=== PATIENT | male | born 1985 | race Caucasian/White ===

== ENCOUNTER 2016-06-13 16:59 | Emergency (ER) | payer MEDICAID ==
[2016-06-13] MEDS ORDERED: ACETAMINOPHEN 325 MG TABLET PO STA (17:38)
[2016-06-13] MEDS ORDERED: IBUPROFEN 600 MG TABLET PO STA (17:38)
[2016-06-13] MEDS ORDERED: SULFAMETH/TRIMETH DS 800/160 MG TABLET PO STA (17:38)
[2016-06-13] MEDS ORDERED: IBUPROFEN 600 MG TABLET PO ONE (17:48)
[2016-06-13] MEDS ORDERED: SULFAMETH/TRIMETH DS 800/160 MG TABLET PO ONE (17:48)
[2016-06-13] MEDS ORDERED: ACETAMINOPHEN 325 MG TABLET PO ONE (17:48)
== END 2016-06-13 18:11 | disposition home or self-care (01) ==
DX: N45.1 Epididymitis (principal); N50.812 Left testicular pain; N50.811 Right testicular pain
CPT/HCPCS: 81003; 99283; A9270

== ENCOUNTER 2016-06-21 20:40 | Emergency (ER) | payer MEDICAID ==
[2016-06-21] MEDS ORDERED: LORazepam 0.5 MG TABLET PO STA (22:08)
[2016-06-21] MEDS ORDERED: LORazepam 0.5 MG TABLET ONE (22:09)
== END 2016-06-22 02:19 | disposition home or self-care (01) ==
DX: F45.8 Other somatoform disorders (principal); F41.9 Anxiety disorder, unspecified
CPT/HCPCS: 36415; 70450; 80053; 80306; 81003; 83690; 85025; 99283; 99284; A9270

== ENCOUNTER 2017-09-09 20:41 | Emergency (ER) | payer OTHER, MEDICAID ==
[2017-09-09 20:47] VITALS: BP 124/75
--- NOTE | 2017-09-09 21:48 | XRAY Report ---
Procedure Date: 09/09/2017 Accession Number: [id number] / [id number] Procedure: XR - Wrist 4 View RT CPT Code: FULL RESULT: EXAM: RIGHT WRIST RADIOGRAPHY EXAM DATE: 09/09/2017 09:12 PM. CLINICAL HISTORY: Pain. COMPARISON: None. TECHNIQUE: 3 views. FINDINGS: Bones: Normal. No fractures or bone lesions. Joints: Normal. No subluxations. Soft Tissues: Normal. No soft tissue swelling. IMPRESSION: Normal wrist radiography. [facility]
[2017-09-09] MEDS ORDERED: IBUPROFEN 800 MG TABLET PO STA (22:03)
[2017-09-09] MEDS ORDERED: DEXAMETHASONE 10 MG/ML VIAL PO STA (22:03)
--- NOTE | 2017-09-09 22:07 | ED Physician Documentation ---
History of Present Illness - Stated complaint Stated Complaint: R ARM PX - Chief complaint Chief Complaint: Ext Problem - History obtained from History obtained from: Patient - History of Present Illness Timing: Yesterday Pain level max: 8 Pain level now: 5 Improved by: rest Worsened by: movement - Additonal information Additional information: Patient is a 32-year-old male who presents to the emergency department with right wrist pain since yesterday. States that he first noticed it after opening boxes at work. Has not taken anything for the pain Review of Systems Constitutional: denies: Fever Neurologic: denies: Focal weakness, Numbness PD PAST MEDICAL HISTORY - Past Medical History Past Medical History: Yes Cardiovascular: Hypertension Respiratory: None Endocrine/Autoimmune: None : Other Psych: Anxiety, Panic attacks - Past Surgical History Past Surgical History: No - Present Medications Home Medications: Ambulatory Orders Medication Instructions Recorded Confirmed Gabapentin 2 tab PO BID 09/09/17 09/09/17 Ibuprofen [Motrin] 800 mg PO Q8H PRN #30 tablet 09/09/17 Lisinopril [Qbrelis] 1 tab PO DAILY 09/09/17 09/09/17 - Allergies Allergies/Adverse Reactions: Allergies Allergy/AdvReac Type Severity Reaction Status Date / Time No Known Drug Allergies Allergy Verified 09/09/17 20:46 - Social History Does the pt smoke?: No Smoking Status: Never smoker Does the pt drink ETOH?: No Does the pt have substance abuse?: Yes Substance Use and Type: Marijuana - Immunizations Immunizations are current?: Yes - POLST Patient has POLST: No PD ED PE NORMAL - Vitals Vital signs reviewed: Yes - General General: Alert and oriented X 3, No acute distress - HEENT HEENT: Moist mucous membranes - Derm Derm: Warm and dry - Extremities Extremities: Other (R wrist - no snuffbox tenderness. NVI. pain with ROM of the wrist. no deformity. mild diffuse TTP over the wrist.) - Neuro Neuro: Alert and oriented X 3 - Psych Psych: Normal mood, Normal affect Results - Vitals Vitals: Oxygen O2 Source Room air - Rads (name of study) R wrist xray Radiology: Prelim report reviewed, EMP read contemporaneously, See rad report ( normal) PD MEDICAL DECISION MAKING - ED course Complexity details: reviewed results, re-evaluated patient, considered differential, d/w patient ED course: Patient is a 32-year-old right-handed male with an apparent wrist strain. Placed in a thumb spica for comfort as he did have discomfort moving his thumb as well. No evidence of infection in the joint spaces. Normal x-ray. We will continue supportive care and follow-up with his doctor. Patient counseled regarding signs and symptoms for which I believe and urgent re-evaluation would be necessary. Patient with good understanding of and agreement to plan and is comfortable going home at this time This document was made in part using voice recognition software. While efforts are made to proofread this document, sound alike and grammatical errors may occur. - Sepsis Event Vital Signs: Oxygen O2 Source Room air Departure - Departure Disposition: Home, Self Care Clinical Impression: Wrist pain, right Condition: Good Instructions: ED Sprain Wrist Follow-Up: Jess Tomas MD [Primary Care Provider] - Within 1 week Prescriptions: Ibuprofen [Motrin] 800 mg PO Q8H PRN #30 tablet PRN Reason: PAIN &/OR FEVER Comments: Wear the splint for the next 3-4 days. Return if you worsen. You should follow -up with your doctor within 1 week for repeat evaluation. Discharge Date/Time: 09/09/17 22:13
--- NOTE | 2017-09-17 17:20 | ED Physician Documentation ---
ED Addendum - Addendum Addendum: 09/17/17 17:20 He called in, and he needs a note to return to work. His wrist feels fine. His primary care physician would not see him for this issue because it is an L& I issue. I wrote a work note to return to work but another week of light duty with the right arm.
== END 2017-09-09 22:13 | disposition home or self-care (01) ==
LOC: ED 20:41
DX: S63.501A Unspecified sprain of right wrist, initial encounter (principal); X50.9XXA Other and unspecified overexertion or strenuous movements or postures, initial encounter; Y99.0 Civilian activity done for income or pay
CPT/HCPCS: 73110; 99283; A9270